=== PATIENT | male | born 1955 | race Hispanic/Latino ===

== ENCOUNTER 2017-11-01 19:42 | Emergency (ER) | payer BC ==
[~2017-11-01] VITALS: Ht 167.6 cm; Wt 89.8 kg
[~2017-11-01 19:42] MED LIST: NKM
[2017-11-01] MEDS ORDERED: TETRACAINE HCL 0.5% OPTH SOLN 4 ML BTL ONE (20:09)
[2017-11-01] MEDS ORDERED: TETRACAINE HCL 0.5% OPTH SOLN 4 ML BTL OP ONE (20:15)
--- NOTE | 2017-11-01 21:09 | Diagnostic Imaging Report ---
History: Blurry vision Comparison studies: Head CT on 10-08 Technique: Axial images were obtained from the skull base to the vertex. Coronal and sagittal reconstructions obtained from the axial data. Findings: Scalp/skull: No abnormalities. No fractures, blastic or lytic lesions. Extra-axial spaces: No masses. No fluid collections. Brain sulci: Appropriate for age. Ventricles: Normal in size and configuration. No hydrocephalus. Parenchyma: No abnormal densities. No masses, hemorrhage, acute or chronic cortical vascular insults. Sellar/suprasellar region: No abnormalities Craniocervical junction: Patent foramen magnum. No Chiari one malformation. IMPRESSION: No abnormalities. Preliminary report provided by Dr. Brooks on November 01, 2017 at 2108 hours Signed by: Dr. Vick Condon M.D. on 11/01/2017 11:07 PM
== END 2017-11-01 22:01 | disposition home or self-care (01) ==
LOC: ER 19:42
DX: H53.8 Other visual disturbances (principal); R09.81 Nasal congestion; I10 Essential (primary) hypertension; F32.9 Major depressive disorder, single episode, unspecified
CPT/HCPCS: 70450; 99284